=== PATIENT | male | born 1975 | race Caucasian/White ===

== ENCOUNTER 2018-12-04 07:13 | Emergency (ER) | payer SELFPAY ==
[2018-12-04] MEDS ORDERED: NACL 0.9% 1000 ML 1,000 ML IV ONE (07:23)
--- NOTE | 2018-12-04 08:22 | Emergency Department Report ---
ED Abdominal Pain HPI - General Chief Complaint: Abdominal Pain Stated Complaint: ABDOMINAL PAIN Time Seen by Provider: 12/04/18 08:20 Source: patient, family Mode of arrival: Ambulatory Limitations: Language Barrier - History of Present Illness Initial Comments: This is a [place]-speaking 43-year-old man from [place] who has had left lower quadrant pain for one month. I have taken the history from him is [place]. He tells me that he has intermittent discomfort dull pain in the left lower quadrant of the abdomen. He has been placed on omeprazole which did not help. He was previously told that he had gastritis. His thinks he's lost 5 pounds recently but not more than that. His pain is not related to eating. He occasionally has diarrhea but not recently. He had some nausea this morning. He occasionally has chills but no recent fever. He has never had any imaging studies of his abdomen. He's had no prior belly surgery. MD Complaint: abdominal pain -: Gradual, month(s) Location: LLQ Radiation: none Migration to: no migration Severity: moderate Quality: aching Consistency: intermittent Improves With: nothing Worsens With: nothing Associated Symptoms: nausea, diarrhea (occasional) - Related Data Home Medications Medication Instructions Recorded Confirmed Last Taken Omeprazole 40 mg PO DAILY 12/04/18 Unknown Previous Rx's Medication Instructions Recorded Last Taken Type Tramadol HCl [Ultram] 50 mg PO Q6H PRN #10 tablet 12/04/18 Unknown Rx Allergies Allergy/AdvReac Type Severity Reaction Status Date / Time No Known Allergies Allergy Unverified 12/04/18 07:23 ED Review of Systems ROS: Stated complaint: ABDOMINAL PAIN Other details as noted in HPI Constitutional: denies: chills, fever Eyes: denies: eye pain, eye discharge, vision change ENT: denies: ear pain, throat pain Respiratory: denies: cough, shortness of breath, wheezing Cardiovascular: denies: chest pain, palpitations Endocrine: no symptoms reported Gastrointestinal: as per HPI, abdominal pain, nausea, diarrhea Genitourinary: denies: urgency, dysuria Musculoskeletal: denies: back pain, joint swelling, arthralgia Skin: denies: rash, lesions Neurological: denies: headache, weakness, paresthesias Psychiatric: denies: anxiety, depression Hematological/Lymphatic: denies: easy bleeding, easy bruising ED Past Medical Hx - Past Medical History Previous Medical History?: Yes Hx GERD: Yes - Surgical History Past Surgical History?: No - Social History Smoking Status: Current Every Day Smoker Substance Use Type: Marijuana - Medications Home Medications: Home Medications Medication Instructions Recorded Confirmed Last Taken Type Omeprazole 40 mg PO DAILY 12/04/18 Unknown History Tramadol HCl [Ultram] 50 mg PO Q6H PRN #10 tablet 12/04/18 Unknown Rx ED Physical Exam - General Limitations: No Limitations General appearance: alert, in no apparent distress - Head Head exam: Present: atraumatic, normocephalic - Eye Eye exam: Present: normal appearance. Absent: scleral icterus - ENT ENT exam: Present: mucous membranes moist - Neck Neck exam: Present: normal inspection - Respiratory Respiratory exam: Present: normal lung sounds bilaterally. Absent: respiratory distress - Cardiovascular Cardiovascular Exam: Present: regular rate, normal rhythm. Absent: systolic murmur, diastolic murmur, rubs, gallop - GI/Abdominal GI/Abdominal exam: Present: soft, other (some increased bowel sounds were noted). Absent: distended, tenderness, guarding, rebound, rigid - Rectal Rectal exam: Present: deferred - Extremities Exam Extremities exam: Present: normal inspection - Back Exam Back exam: Present: normal inspection - Neurological Exam Neurological exam: Present: alert, oriented X3, CN II-XII intact. Absent: motor sensory deficit - Psychiatric Psychiatric exam: Present: normal affect, normal mood - Skin Skin exam: Present: warm, dry, intact, normal color. Absent: rash ED Course Vital Signs 12/04/18 12/04/18 12/04/18 07:17 08:00 09:00 Temperature 97.6 F Pulse Rate 65 65 56 L Respiratory 18 12 15 Rate Blood Pressure 115/42 103/64 107/67 Blood Pressure [Left] O2 Sat by Pulse 97 98 Oximetry 12/04/18 11:45 Temperature 97.8 F Pulse Rate 82 Respiratory 16 Rate Blood Pressure Blood Pressure 104/51 [Left] O2 Sat by Pulse 98 Oximetry - Reevaluation(s) Reevaluation #1: Patient appears comfortable on reexamination. His CT was normal. His labs were absolutely benign. I have recommended that he see a land examiner for care and evaluation probably to include colonoscopy. He is appropriate for further outpatient evaluation. 12/04/18 12:51 ED Medical Decision Making - Lab Data Result diagrams: 12/04/18 07:31 12/04/18 07:31 Laboratory Results - last 24 hr 12/04/18 12/04/18 07:31 07:31 WBC 6.4 RBC 4.75 Hgb 14.5 Hct 44.0 MCV 93 MCH 30 MCHC 33 RDW 13.6 Plt Count 261 Lymph % (Auto) 11.2 L [place] % (Auto) 10.7 H Eos % (Auto) 5.4 H Baso % (Auto) 0.6 Lymph # 0.7 L [place] # 0.7 Eos # 0.3 Baso # 0.0 Seg Neutrophils % 72.1 H Seg Neutrophils # 4.6 Sodium 142 Potassium 4.2 Chloride 107.2 H Carbon Dioxide 24 Anion Gap 15 BUN 14 Creatinine 0.6 L Estimated GFR > 60 BUN/Creatinine Ratio 23 Glucose 97 Calcium 8.7 Total Bilirubin 0.30 AST 30 ALT 63 H Alkaline Phosphatase 60 Total Protein 6.9 Albumin 4.2 Albumin/Globulin Ratio 1.6 Critical care attestation.: If time is entered above; I have spent that time in minutes in the direct care of this critically ill patient, excluding procedure time. ED Disposition Clinical Impression: Left lower quadrant pain Disposition: DC-01 TO HOME OR SELFCARE Is pt being admited?: No Does the pt Need Aspirin: No Condition: Stable Instructions: Acute Abdominal Pain (ED) Additional Instructions: Return to the emergency department any acute change or problem. Further evaluation by land examiner to include colonoscopy is recommended. Prescriptions: Tramadol HCl [Ultram] 50 mg PO Q6H PRN #10 tablet PRN Reason: Pain, Moderate (4-6) Referrals: TABITHA JOSÉ MD [Primary Care Provider] - 3-5 Days [facility] [Provider Group] - 3-5 Days Time of Disposition: 12:52
[2018-12-04 08:23] LABS: Basophils % (Auto) 0.6 % (0.0-1.8); Eosinophils # (Auto) 0.3 K/mm3 (0.0-0.4); Eosinophils % (Auto) 5.4 % (0.0-4.3); Hemoglobin 14.5 gm/dl (11.8-15.2); Lymphocytes # (Auto) 0.7 K/mm3 (1.2-5.4); Lymphocytes % (Auto) 11.2 % (13.4-35.0); Mean Corpuscular HGB Conc 33 % (32-34); Mean Corpuscular Volume 93 fl (84-94); Monocytes # (Auto) 0.7 K/mm3 (0.0-0.8); Monocytes % (Auto) 10.7 % (0.0-7.3); Platelet Count 261 K/mm3 (140-440); Red Blood Count 4.75 M/mm3 (3.65-5.03); Red Cell Distribution Width 13.6 % (13.2-15.2)
[2018-12-04 08:38] LABS: Alanine Aminotransferase 63 units/L (7-56); Albumin 4.2 g/dL (3.9-5); BUN/Creatinine Ratio 23; Blood Urea Nitrogen 14 mg/dL (9-20); Calcium 8.7 mg/dL (8.4-10.2); Hemolysis Index 15
[2018-12-04 09:21] LABS: Bilirubin,Urine NEG (Negative); Blood,Urine NEG (Negative); Calcium Oxalate Crystals,Urine 1+; Color,Urine Yellow (Yellow); Mucus,Urine 2+ /HPF; Protein,Urine <15 mg/dL mg/dL (Negative)
--- NOTE | 2018-12-04 11:57 | Cat Scan Report ---
FINAL REPORT EXAM: CT ABDOMEN PELVIS W CON HISTORY: LLQ pain COMPARISON: None. TECHNIQUE: Multiple contiguous axial images were obtained from the lung bases to the pubic symphysis after administration of IV and oral contrast. Reformatted sagittal and coronal images were available for review. FINDINGS: Lung bases: Normal. Visualized heart and mediastinum: Normal. Liver: Diffusely decreased attenuation of the hepatic parenchyma, likely due to hepatic steatosis, wi th sparing around the gallbladder fossa Spleen: Normal. Pancreas: Normal. Gallbladder and Biliary Tree: No calcified gallstones. No biliary ductal dilatation. Adrenal glands: Normal. Kidneys: Symmetric enhancement to both kidneys. Several simple appearing peripelvic cysts of the left kidney several punctate nonobstructive calculi of the bilateral kidneys measuring up to 2 millimeter s. No hydronephrosis. Bladder: Normal. Pelvic organs: Normal. Bowel: No focal wall thickening. No evidence of obstruction. Oral contrast advances to the rectum. Th e appendix is not clearly identified, but there are no pericecal inflammatory changes. Peritoneum: No significant mesenteric adenopathy. No free air or free fluid. Vasculature: Abdominal aorta is normal in caliber without evidence of aneurysm. Normal appearance of the portal venous system and the inferior vena cava. Bones and soft tissues: No suspicious osseous lesions.No acute fracture or dislocation. Small, fat co ntaining bilateral inguinal hernias IMPRESSION: No acute intra-abdominal pathology. Hepatic steatosis. Left peripelvic cysts and bilateral punctate nonobstructive renal calculi.
[2018-12-05 13:37] VITALS: BP 104/51
== END 2018-12-04 13:12 | disposition home or self-care (01) ==
LOC: ED 07:13
DX: R10.32 Left lower quadrant pain (principal); R11.0 Nausea; R19.7 Diarrhea, unspecified; K21.9 Gastro-esophageal reflux disease without esophagitis; F17.200 Nicotine dependence, unspecified, uncomplicated
CPT/HCPCS: 36415; 74177; 80053; 81001; 83690; 85025; 99284; Q9967